=== PATIENT | female | born 1990 | race Two or more races ===

== ENCOUNTER 2018-08-18 21:36 | Emergency (ER) | payer MEDICAID ==
[~2018-08-18] VITALS: Ht 167.6 cm; Wt 63.5 kg
[2018-08-18 21:53] VITALS: BP 111/67
--- NOTE | 2018-08-18 23:38 | Emergency Room Report ---
History of Present Illness General Chief Complaint: Earache Source: Patient Present Illness HPI Is a 27-year-old female who is 9 months . She presents with left ear pain. Onset for last 2 days. Pain is 7 out of 10. Also decreased hearing. No nausea no vomiting. No upper first or infection. Allergies: Coded Allergies: No Known Allergies (Unverified , 08/18/18) Patient History Past Medical History: see triage record, old chart reviewed Past Surgical History: none Pertinent Family History: none Social History: Denies: smoking Last Menstrual Period: 05/29/2018 Now: Yes - 9 weeks : 2 Para: 1 Immunizations: other Reviewed Nursing Documentation: PMH: Agreed; PSxH: Agreed Nursing Documentation-PMH Past Medical History: No Stated History Review of Systems Eye: Denies: eye pain, blurred vision ENT: Reports: ear pain; Denies: nose congestion, throat swelling Respiratory: Denies: cough, shortness of breath Cardiovascular: Denies: chest pain, palpitations Gastrointestinal: Denies: abdominal pain, diarrhea, nausea, vomiting Musculoskeletal: Denies: back pain, joint pain Skin: Denies: rash Neurological: Denies: headache, numbness Endocrine: Denies: increased thirst, increased urine Hematologic/Lymphatic: Denies: easy bruising All Other Systems: negative except mentioned in HPI Physical Exam Vital Signs Date Time Temp Pulse Resp B/P (MAP) Pulse Ox O2 Delivery O2 Flow Rate FiO2 08/18/18 21:50 97.5 68 16 100/64 100 Room Air vitals normal Sp02 EP Interpretation: reviewed, normal General Appearance: well appearing, no apparent distress, alert Head: normocephalic, atraumatic Eyes: bilateral eye PERRL, bilateral eye EOMI ENT: hearing grossly normal, normal pharynx, other - left TM impacted with cerumen Neck: full range of motion, supple, no meningismus Respiratory: chest non-tender, lungs clear, normal breath sounds Cardiovascular #1: regular rate, rhythm, no murmur Gastrointestinal: normal bowel sounds, non tender, no mass, no organomegaly, no bruit, non-distended Musculoskeletal: back normal, gait/station normal, normal range of motion Psychiatric: mood/affect normal Skin: warm/dry Procedures Additional Procedure Procedure Narrative Procedure: Cerumen disimpaction Indication: Cerumen impaction Description: Irrigated the ear with normal saline. There was copious amount of cerumen disimpacted. On reexamination, TM is erythematous. There is some redness along the canal also. No perforation. Patient tolerated procedure without a problem. Medical Decision Making Diagnostic Impression: Primary Impression: Impacted cerumen of left ear Additional Impressions: Otitis media, left Qualified Codes: H66.92 - Otitis media, unspecified, left ear Otitis externa Qualified Codes: H60.502 - Unspecified acute noninfective otitis externa, left ear ER Course Patient presents with impacted cerumen. She has ear pain and TMs are erythematous. We'll treat for otitis media and otitis externa also. No perforation. No trauma. Last Vital Signs Date Time Temp Pulse Resp B/P (MAP) Pulse Ox O2 Delivery O2 Flow Rate FiO2 08/18/18 21:53 97.5 72 16 111/67 100 Room Air Status: improved Disposition: HOME, SELF-CARE Condition: Stable Scripts Ciprofloxacin/Hydrocortisone (CIPRO HC OTIC SUSPENSION) 10 Ml Drops.susp 3 DROP OT BID, #10 ML Prov: Ubrano Alcaraz MD 08/18/18 Amoxicillin* (AMOXIL*) 500 Mg Capsule 500 MG ORAL THREE TIMES A DAY, #21 CAP Prov: Urbano Alcaraz MD 08/18/18 Referrals: NOT CHOSEN IPA/,REFERRING (PCP) Patient Instructions: Otitis Media, Adult, [id number] Urbano Alcaraz MD Aug 18, 2018 23:38
[2018-08-18] MEDS ORDERED: AMOXICILLIN500 MG ORAL (23:45)
[2018-08-18] MEDS ORDERED: CIPRO HC OTIC S10 M1 OT (23:45)
[2018-08-18 23:49] VITALS: BP 109/65
[2018-08-18 23:50] VITALS: BP 109/65
== END 2018-08-18 23:50 | disposition home or self-care (01) ==
LOC: EMR 21:49
DX: H61.22 Impacted cerumen, left ear (principal); H66.92 Otitis media, unspecified, left ear
CPT/HCPCS: 69209; 99283; Z7502

== ENCOUNTER 2018-09-02 20:11 | Emergency (ER) | payer MEDICAID ==
[~2018-09-02] VITALS: Ht 162.6 cm; Wt 66.2 kg
[~2018-09-02 20:11] MED LIST: AMOXICILLIN500 MG ORAL; CIPRO HC OTIC S10 M1 OT
[2018-09-02] MEDS ORDERED: NKM (20:53)
--- NOTE | 2018-09-02 21:13 | Emergency Room Report ---
History of Present Illness General Chief Complaint: Complications Source: Patient Present Illness HPI Patient presents with complaints of vaginal spotting and bleeding Patient reports that last week she had an episode with dark blood That had started to improve she reports being approximately 3 months chest some mild cramping as well Denies any vomiting or diarrhea denies any fevers or chills Patient has a copy of an ultrasound from August 23 Allergies: Coded Allergies: No Known Allergies (Unverified , 08/18/18) Patient History Past Medical History: see triage record Pertinent Family History: none Last Menstrual Period: 05/29/2018 Now: Yes - 13 weeks : 2 Para: 1 Reviewed Nursing Documentation: PMH: Agreed; PSxH: Agreed Nursing Documentation-PMH Past Medical History: No Stated History Review of Systems All Other Systems: negative except mentioned in HPI Physical Exam Vital Signs Date Time Temp Pulse Resp B/P (MAP) Pulse Ox O2 Delivery O2 Flow Rate FiO2 09/02/18 20:48 97.5 71 16 101/65 99 Room Air Sp02 EP Interpretation: reviewed, normal General Appearance: well appearing, no apparent distress Head: normocephalic, atraumatic Eyes: bilateral eye PERRL, bilateral eye EOMI ENT: hearing grossly normal, normal pharynx, TMs + canals normal, uvula midline Neck: full range of motion, supple, no meningismus, no bony tend Respiratory: lungs clear, normal breath sounds, no rhonchi, no respiratory distress, no retraction, no accessory muscle use Cardiovascular #1: normal peripheral pulses, regular rate, rhythm, no edema, no gallop, no JVD, no murmur Gastrointestinal: normal bowel sounds, non tender, soft, no mass, no organomegaly, non-distended, no guarding, no hernia, no pulsatile mass, no rebound Genitourinary: no CVA tenderness Musculoskeletal: normal inspection Neurologic: oriented x3, responsive, 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, motor strength/ tone normal, sensory intact Psychiatric: mood/affect normal Skin: normal color, no rash, warm/dry, palpation normal Lymphatic: normal inspection, no adenopathy Medical Decision Making Diagnostic Impression: Primary Impression: Threatened Additional Impression: UTI (urinary tract infection) ER Course Multiple differentials including but not limited to threatened miscarriage, incomplete miscarriage, ectopic considered Patient's ultrasound reveals intrauterine with heart tones Urine sample does show evidence of UTI I discussed with Turkmen translation That these are still signs of possible threatened miscarriage Patient will have bedrest and follow-up with her [employer] physician in next 2-3 days Labs Test 09/02/18 21:30 White Blood Count 9.8 K/UL (4.8-10.8) Red Blood Count 3.35 M/UL (4.20-5.40) Hemoglobin 10.3 G/DL (12.0-16.0) Hematocrit 30.7 % (37.0-47.0) Mean Corpuscular Volume 91 FL (80-99) Mean Corpuscular Hemoglobin 30.8 PG (27.0-31.0) Mean Corpuscular Hemoglobin Concent 33.7 G/DL (32.0-36.0) Red Cell Distribution Width 11.4 % (11.6-14.8) Platelet Count 226 K/UL (150-450) Mean Platelet Volume 7.9 FL (6.5-10.1) Neutrophils (%) (Auto) 72.0 % (45.0-75.0) Lymphocytes (%) (Auto) 19.9 % (20.0-45.0) Monocytes (%) (Auto) 5.7 % (1.0-10.0) Eosinophils (%) (Auto) 1.6 % (0.0-3.0) Basophils (%) (Auto) 0.7 % (0.0-2.0) Urine Color Pale yellow Urine Appearance Slightly cloudy Urine pH 6 (4.5-8.0) Urine Specific [place] 1.010 (1.005-1.035) Urine Protein Negative (NEGATIVE) Urine Glucose (UA) Negative (NEGATIVE) Urine Ketones 3+ (NEGATIVE) Urine Blood 5+ (NEGATIVE) Urine Nitrite Negative (NEGATIVE) Urine Bilirubin Negative (NEGATIVE) Urine Urobilinogen Normal MG/DL (0.0-1.0) Urine Leukocyte Esterase 1+ (NEGATIVE) Urine RBC 10-15 /HPF (0 - 2) Urine WBC 15-20 /HPF (0 - 2) Urine Squamous Epithelial Cells Moderate /LPF (NONE/OCC) Urine Bacteria Moderate /HPF (NONE) Human Chorionic Gonadotropin, Quant 28065 mIU/mL (1-6) CT/MRI/US Diagnostic Results CT/MRI/US Diagnostic Results : Impression pelvic ultrasoundIMPRESSION: 1. Single living intrauterine with calculated ultrasound age 13 weeks 2 days. No acute findings. 2. Estimated date of delivery by ultrasound 03/08/19. Last Vital Signs Date Time Temp Pulse Resp B/P (MAP) Pulse Ox O2 Delivery O2 Flow Rate FiO2 09/02/18 20:48 97.5 71 16 101/65 99 Room Air Status: improved Disposition: HOME, SELF-CARE Condition: Improved Scripts Nitrofurantoin Monohyd/M-Cryst* (MACROBID 100 MG*) 100 Mg Capsule 100 MG ORAL EVERY 12 HOURS for 7 Days, #14 CAP Prov: Moo Kingston DO 09/02/18 Additional Instructions: Patient is provided with the discharge instructions notified to follow up with primary doctor in the next 2-3 days otherwise return to the er with any worsening symptoms. Please note that this report is being documented using Super technology. This can lead to erroneous entry secondary to incorrect interpretation by the dictating instrument. Moo Kingston DO Sep 02, 2018 21:13
--- NOTE | 2018-09-02 21:30 | NUR ---
ER Nurse Note: Pt came from home c/o abdominal pain since 199. Pt stated she is 12 or 13 weeks ; second . Pt stated she started bleeding brownish-red blood last night and bright red blood since 199. Changed pads 3 times since 199. Pt a&ox4, VSS, no signs of distress. ERMD at pt side; will continue to motnor.
[2018-09-02 21:40] VITALS: BP 101/65
[2018-09-02 21:46] LABS: BASOPHILS % (AUTO) 0.7 % (0.0-2.0); EOSINOPHILS % (AUTO) 1.6 % (0.0-3.0); HEMATOCRIT 30.7 % (37.0-47.0); HEMOGLOBIN 10.3 G/DL (12.0-16.0); LYMPHOCYTES % (AUTO) 19.9 % (20.0-45.0); MEAN CORPUSCULAR VOLUME 91 FL (80-99); MONOCYTES % (AUTO) 5.7 % (1.0-10.0); PLATELET COUNT 226 K/UL (150-450); RED BLOOD COUNT 3.35 M/UL (4.20-5.40); RED CELL DISTRIBUTION WIDTH 11.4 % (11.6-14.8); WHITE BLOOD COUNT 9.8 K/UL (4.8-10.8)
[2018-09-02 21:49] LABS: APPEARANCE,URINE SLIGHTLY CLOUDY; BILIRUBIN, URINE NEGATIVE (NEGATIVE); COLOR,URINE PALE YELLOW; GLUCOSE, URINE (UA) NEGATIVE (NEGATIVE); KETONES,URINE 3+ (NEGATIVE); LEUKOCYTE ESTERASE ,URINE 1+ (NEGATIVE); NITRITE,URINE NEGATIVE (NEGATIVE); PH,URINE 6 (4.5-8.0); PROTEIN,URINE NEGATIVE (NEGATIVE); UROBILINOGEN,URINE NORMAL MG/DL (0.0-1.0)
--- NOTE | 2018-09-02 22:40 | NUR ---
ER Nurse Note: Pt awake, cooperative, VSS. All orders completed per ERMD orders. Awaiting results from lab and ultrasound. All safety measures met; will continue to montior.
--- NOTE | 2018-09-02 22:52 | Diagnostic Imaging Report ---
EXAM: US Pelvis Complete, Transabdominal CLINICAL HISTORY: ABD PAIN TECHNIQUE: Real-time transabdominal pelvic ultrasound (complete) with image documentation. COMPARISON: No relevant prior studies available. FINDINGS: Uterus/cervix: The uterus measures 9.4 x 10.8 x 9.7 cm. A single living intrauterine is identified. heart rate is 144 bpm. Biparietal diameter 13 weeks 2 days +/-1 week 1 day. Head circumference 13 weeks 3 days +/-1 week 1 day. Abdominal circumference 13 weeks 2 days +/-1 weeks 5 days. Femur length 12 weeks 6 days +/-1 weeks 3 days. Calculated ultrasound age 13 weeks 2 days. Estimated date of delivery by ultrasound 03/08/19. Right ovary: The right ovary measures 3.9 x 2.2 x 3.7 cm. Left ovary: Left ovary is not visualized. Free fluid: No free fluid. IMPRESSION: 1. Single living intrauterine with calculated ultrasound age 13 weeks 2 days. No acute findings. 2. Estimated date of delivery by ultrasound 03/08/19.
[2018-09-02] MEDS ORDERED: NITROFURANTOIN100 M2 ORAL (23:30)
[2018-09-02 23:45] VITALS: BP 110/68
--- NOTE | 2018-09-02 23:45 | NUR ---
ER Nurse Note: Pt seen, treated, medically cleared for discharge by ERMD. Discharge instructions and prescriptions given with repeat verbalization by pt. Instructed pt to follow up [facility] primary care physican/OBGYN within one week. Pt a&ox4, VSS, no signs of distress. ID band removed. IV removed; site clean and bandaged. Pt left with all belongings, left with steady gait via own transporation.
== END 2018-09-02 23:45 | disposition home or self-care (01) ==
LOC: EMR 20:40
DX: O20.9 Hemorrhage in early pregnancy, unspecified (principal); Z3A.13 13 weeks gestation of pregnancy
CPT/HCPCS: 36415; 76830; 76856; 81003; 84702; 85025; 86900; 86901; 87086; 99284